=== PATIENT | female | born 2000 | race Two or more races ===

== ENCOUNTER 2019-10-09 12:43 | Emergency (ER) | payer SELFPAY ==
[~2019-10-09] VITALS: Ht 160 cm; Wt 68.0 kg
[2019-10-09 13:00] VITALS: BP 134/92
[2019-10-09] MEDS ORDERED: LORazepam 2MG/ML-1ML VIAL IV ONE (13:15)
[2019-10-09 13:34] LABS: Urine Pregnacy Test Negative (Negative)
[2019-10-09 13:41] LABS: Urine Bacteria NONE SEEN /hpf (None Seen); Urine Blood Negative /uL (Negative); Urine Specific Gravity 1.006 (1.001-1.035); Urine WBC <1 /hpf (0 - 5)
[2019-10-09 13:52] LABS: Alcohol, Urine < 3.0 mg/dL (0-5); Amphetamine Screen, Urine NEGATIVE (NEGATIVE); Barbiturate Scree,Urine NEGATIVE (NEGATIVE); Benzodiazephine Screen, Urine NEGATIVE (NEGATIVE); Cannabinoid Screen, Urine POSITIVE (NEGATIVE); Cocaine Screen, Urine NEGATIVE (NEGATIVE); Opiate Scree,Urine NEGATIVE (NEGATIVE); Phencyclidine Screen, Urine NEGATIVE (NEGATIVE)
== END 2019-10-09 14:22 | disposition home or self-care (01) ==
LOC: ER 12:58
DX: F41.9 Anxiety disorder, unspecified (principal); E86.0 Dehydration; F12.10 Cannabis abuse, uncomplicated
CPT/HCPCS: 80307; 81001; 81025; 96374; 99283; J2060

== ENCOUNTER 2020-11-19 06:43 | Emergency (ER) | payer MEDICAID, OTHER ==
[~2020-11-19] VITALS: Ht 160 cm; Wt 65.8 kg
[2020-11-19 06:44] VITALS: BP 113/77
[2020-11-19] MEDS ORDERED: LIDOCAINE 1% HCL (LOCAL ANESTH.) INJ 20ML MDV IJ ONE (08:00)
[2020-11-19] MEDS ORDERED: TETANUS-DIPTH-ACEL PERTUSSIS 0.5ML SYR Tdap IM ONE (08:15)
== END 2020-11-19 08:55 | disposition home or self-care (01) ==
LOC: ER 06:43
DX: S61.211A Laceration without foreign body of left index finger without damage to nail, initial encounter (principal); W26.8XXA Contact with other sharp object(s), not elsewhere classified, initial encounter; Y93.89 Activity, other specified; Y92.89 Other specified places as the place of occurrence of the external cause; Y99.8 Other external cause status
CPT/HCPCS: 12002; 90471; 90715; 99283; J2001